=== PATIENT | female | born 1965 | race Caucasian/White ===

== ENCOUNTER 2017-08-21 06:22 | Observation (INO) | payer OTHER ==
[~2017-08-21] VITALS: Ht 157.5 cm; Wt 56.4 kg
[~2017-08-21 06:22] MED LIST: MORP1TAB26 PO; OXYC30TA PO; SACC1CAP3 PO; ZOLO100T PO
[2017-08-21] MEDS ORDERED: BUPIVACAINE/EPINEPHRINE 0.25% 50 ML VIAL ONE (06:26)
[2017-08-21] MEDS ORDERED: BETAMETHASONE SOD PHOS/ACETATE SUSP 30 MG/5 ML VIAL ONE (06:27)
[2017-08-21] MEDS ORDERED: GENTAMICIN SULFATE 80 MG/2 ML VIAL ONE (06:27)
[2017-08-21] MEDS ORDERED: GELATIN 12 MM/7 MM FOAM ONE (06:28)
[2017-08-21] MEDS ORDERED: LACTATED RINGER'S 1000 ML IV PRN (07:15)
[2017-08-21] MEDS ORDERED: CHLORHEXIDINE GLUCONATE 2 % 1 PACK (2 CLOTHS) TOPICAL PRN (07:15)
[2017-08-21] MEDS ORDERED: POVIDONE IODINE 5% (ANTISEPSIS KIT) 4 APPLICATIONS EACH NARE PRN (07:15)
[2017-08-21] MEDS ORDERED: VANCOMYCIN 1000 MG/NS 250 ML (for <70 kg) IV SCH ×2 (07:15)
[2017-08-21] MEDS ORDERED: SODIUM CHLORID 0.9% 500 ML IV PRN (07:15)
[2017-08-21] MEDS ORDERED: METOPROLOL TARTRATE 25 MG TAB PO PRN (07:15)
[2017-08-21] MEDS ORDERED: CHLORHEXIDINE GLUCONATE 4% SOLN 120 ML BTL TOPICAL SCH (07:15)
[2017-08-21] MEDS ORDERED: SUFentanil INJ 250 MCG/5 ML AMP ONE (07:27)
[2017-08-21] MEDS ORDERED: PROPOFOL 500 MG/50 ML INJ 200 ML ONE (07:27)
[2017-08-21] MEDS ORDERED: ACETAMINOPHEN 1000 MG/100 ML 0 ML IV ONE (07:28)
[2017-08-21] MEDS ORDERED: ceFAZolin 2 GM PREMIX 50 ML ONE (08:07)
[2017-08-21] MEDS ORDERED: ARTIFICIAL TEARS OPTH OINT 3.5 APPLIC/3.5 GM TUBO ONE (08:08)
--- NOTE | 2017-08-21 10:41 | PD.OP ---
cc: Rishabh Nichols MD; Nicolas Nichols MD Operative Report Date of Surgery: Aug 21, 2017 Preoperative Diagnosis: Herniated nucleus pulposus C5 6 central. Osteophyte disc complex C5 6 and C6 7. Bilateral cervical radiculopathy Postoperative Diagnosis: Same Procedure: Anterior cervical decompression with bilateral foraminotomy, C5 6. Anterior cervical decompression with bilateral foraminotomies, C6 7. Left anterior iliac crest bone graft Anesthesia: Gen. Surgeon: Nicolas Nichols Powertrain Design Engineer(s): LASHAY Lira Operation and Findings: EBL: 50 cc INDICATIONS: Patient is a 52-year-old female with significant neck and arm pain. Investigative studies shows evidence of osteophyte disc complexes C5 6 and C6 7 with evidence of a central disc herniation at C5 6. The patient has right greater than left arm pain. She presents for surgical treatment. NOTE: Ada Lira PA-C was present for the entire surgical procedure as my assistant branch operations manager. In my medical opinion her skill and care was necessary for proper management of this patient PROCEDURE: The patient was brought to the operating room and anesthetized in the supine position. This patient was positioned supine on the radiolucent table. All pressure points were protected in the anterior cervical spine and iliac crest was scrubbed with alcohol followed by Hibiclens followed by ChloraPrep. A timeout was done and antibiotics were given within 1 hour time window. Lateral radiographic images were used identifying the proper level. A right anterior incision was made in line with skin creases. The platysma was opened in line with the incision. Deep dissection continued in the interval between the carotid sheath and the esophagus. The longus-coli muscles were lifted on both sides and retractors were positioned allowing good exposure. Lateral radiographic images were used to identify the proper level. [place] style interosseous pins were placed at C5 and C6 allowing exposure to that level. The microscope was rolled into the field. A total discectomy was accomplished and posterior osteophytes were removed. The posterior longitudinal ligament and annulus was taken down. Bilateral foraminotomies were accomplished. The endplates were squared up anticipating later bone grafting. A blunt probe could be placed out each foramen without evidence of nerve root compromise. The C5 pin was placed down to C7. An anterior exposure was accomplished. We performed a total discectomy with excision of the posterior annulus and posterior longitudinal ligament. Bilateral foraminotomies were accomplished. Osteophytes were removed. The endplates were squared up anticipating later bone grafting. A blunt probe could be placed out each foramen without evidence of nerve root compromise. The left iliac crest was approached. A small stab incision was made allowing percutaneous access to the anterior iliac crest. Multiple cores of cancellous bone were harvested and taken to the back table to be used for later bone grafting. The wound was irrigated anesthetized and closed with 4-0 Vicryl followed by Dermabond. The case was turned over to Dr. Rishabh Nichols for fusion and instrumentation per his dictation. FINDINGS: There was evidence of a moderately large disc herniation centrally at C5 6. There was bilateral foraminal stenosis to that level worse on the right than on the left. At C6 7 1 similar finding was found with mostly a mixed osteophyte disc complex. There was bilateral foraminal stenosis left greater than right at that level. The final decompression was felt be very satisfactory NOTE: This surgery was performed in 2 parts. The first part was the neurosurgical decompression performed under the variable power stereo microscope by the undersigned in addition to the bone graft. The second portion of the surgery will be performed by the orthopedic spine component by co -surgeon, Dr. Rishabh Nichols for the anterior fusion with interbody cage and anterior plate. The skill of 2 surgeons was necessary to perform distinct separate procedural services as dictated above and dictated in the following operative note by Dr. Rishabh Nichols. Nicolas Nichols MD Aug 21, 2017 10:41
[2017-08-21] MEDS ORDERED: NEOSTIGMINE 5 MG/5 ML SYRINGE IV PUSH ONE (12:00)
[2017-08-21] MEDS ORDERED: DEXAMETHASONE SOD PHOS 4 MG/ML VIAL IV ONE (12:00)
[2017-08-21] MEDS ORDERED: ONDANSETRON HCL 4 MG/2 ML VIAL IV ONE (12:00)
[2017-08-21] MEDS ORDERED: LIDOCAINE HCL 1% PF 5 ML SYRINGE OTHER ONE (12:00)
[2017-08-21] MEDS ORDERED: GLYCOPYRROLATE 1 MG/5 ML SYRINGE IV PUSH ONE (12:00)
[2017-08-21] MEDS ORDERED: PROPOFOL 200 MG/20 ML AMP IV ONE (12:00)
[2017-08-21] MEDS ORDERED: PROMETHAZINE INJ 25 MG/ML VIAL IM PRN (12:00)
[2017-08-21] MEDS ORDERED: ROCURONIUM INJ 50 MG/5 ML SYRINGE IV PUSH ONE (12:00)
--- NOTE | 2017-08-21 12:07 | HHI.PR ---
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 [place] Supervisor(s): Alea Martin PA-C Procedure: C5-7 ACDF Complications: none Estimated blood loss: 200 cc Anesthesia: General Drains: None Patient to: SDS Patient Condition: Good Implant/Devices: SEE IMPLANT LOG (if applicable) Date/Time of Procedure: SEE SURGICAL CARE RECORD Rishabh Nichols MD Aug 21, 2017 12:07
[2017-08-21] MEDS ORDERED: MORPHINE SULFATE 4 MG/ML INJ ONE (12:13)
[2017-08-21] MEDS ORDERED: MIDAZOLAM HCL 2 MG/2 ML VIAL ONE (12:14)
[2017-08-21] MEDS ORDERED: *morphine SULFATE 8 MG/ML PERIprocedure ONLY ONE ×3 (12:15→12:47)
[2017-08-21] MEDS ORDERED: DO NOT ADM ANY ANTICOAGULANT DRUGS PRN (12:45)
--- NOTE | 2017-08-21 12:52 | MP ---
cc: Rishabh Nichols MD DATE OF OPERATION: 08/21/2017 [place] FA[place] # [facility] FAX # , [place], [place] PREOPERATIVE DIAGNOSES: 1. C5-6 moderately severe osteophyte disc complex, moderately severe spinal stenosis with spinal cord compression, bilateral foraminal stenosis; C6-7 bilateral moderately severe foraminal stenosis, central/left-sided osteophyte disc complex, mild to moderate spinal stenosis; cervical spine degenerative disc disease, osteoarthritis. 2. Bilateral cervical radiculitis with upper extremity weakness. POSTOPERATIVE DIAGNOSES: 1. C5-6 moderately severe osteophyte disc complex, moderately severe spinal stenosis with spinal cord compression, bilateral foraminal stenosis; C6-7 bilateral moderately severe foraminal stenosis, central/left-sided osteophyte disc complex, mild to moderate spinal stenosis; cervical spine degenerative disc disease, osteoarthritis. 2. Bilateral cervical radiculitis with upper extremity weakness. PROCEDURE: C5-6, C6-7 anterior interbody fusion; C5-6, C6-7 Spinet ACC anterior cervical cage; C5-6, C6-7 anterior interbody fusion; C5-6, C6-7 Spinet ACC anterior cervical cage; C5-C7 Spinet Rauscher anterior spinal instrumentation. SURGEON: MD Maryam EXCAVATING SUPERVISOR: Alea Martin PA-C ANESTHESIA: General. ESTIMATED BLOOD LOSS: 200 cc for the entire case. DRAIN: None. COMPLICATIONS: None. PLAN OF ACTIVITY: Per orders. PROCEDURE: Dr. Nicolas Nichols and myself were co-surgeons. Dr. Nicolas Nichols performed the neurosurgical decompression at C5-6 and C6-7 using the operative microscope and left anterior iliac crest bone grafting. I was not present for his portion of the procedure. As the co-surgeon I performed the orthopedic fusion and spinal instrumentation with stabilization at C5-C7. My elder assistant, Alea Martin PA-C was present for my portion of the entire surgical case. She was medically necessary for the entire case because of the complexity of the case and to facilitate the performance of the procedure. The CMT was at the back table and not of the skill set in this case to manipulate the instruments, e.g. the multiple different soft tissue retractors, trial implants and permanent implants. The patient was brought into the operating room, had satisfactory general endotracheal anesthesia by the Department of Anesthesia. Dr. Nicolas Nichols performed right anterior cervical spine exposure to the cervical spine. Using the operating microscope, he performed C5-6 and C6-7 anterior cervical discectomy, anterior decompression and foraminotomies, also left anterior iliac crest bone grafting. I was not present for his portion of the procedure. The endplate at C6-7 was prepared for fusion. The hyaline cartilage and endplate were removed with angled curets and burs. A 7, 10 x 12 ACC cage was placed in the interspace. Anterior iliac bone grafting was used under fluoroscopic guidance for interbody fusion. The endplates at C5-6 were prepared for fusion. The hyaline cartilage and endplate were removed with angled curets and burs. A 5, 10 x 12 ACC cage was placed in the interspace with fluoroscopic guidance. Anterior iliac crest bone grafting was used for interbody fusion. Anterior osteophytes were removed with multiple different types of rongeurs, curets and burs. A 40-mm length Spinet Rauscher plate was used for anterior spinal instrumentation. Normal cervical lordosis was contoured into the plate. Two pins were used to fixate the plate to the vertebral body. This was done under fluoroscopic guidance which confirmed satisfactory position of the anterior spinal instrumentation. Under fluoroscopic guidance two screws were used in the vertebral body of C5, C6 and C7. Each of the screws were drilled. The screws were 14 mm in length, 4.0 mm in outer diameter, fixed angle screws. Each screw was drilled and inserted into the vertebral bodies and each screw was appropriately locked to the anterior spinal fixation plate. Each of the transfixion pins were removed. Under fluoroscopic guidance the patient was found to have satisfactory position of anterior spinal fixation at C5-C7, satisfactory position of bone graft at C5-6 and C6-7, satisfactory position of the Spinet ACC cages at C5-6 and C6-7. The wound was irrigated with copious amounts of sterile saline and antibiotic solution. The wound itself was dry. Surgiflo was used during the case in order to provide adequate hemostasis and satisfactory postoperative hemostasis. The wound was closed in multiple layers using 3-0 Vicryl. The skin was reapproximated with running subcuticular 4-0 Vicryl. Dermabond was placed over the skin incision. Sterile dressings were applied, [place] cervical orthosis applied. The patient tolerated the procedure well and arrived in the recovery room in stable and satisfactory condition. MD MISSY Booker/PETER , 11:59 AM , 12:51 PM
[2017-08-21] MEDS ORDERED: HYDROmorphone HCL PF 2 MG/ML VIAL ONE ×4 (12:58→14:33)
[2017-08-21] MEDS: LACTATED RINGER'S 1000 ML INJ 1,000 ML IV SCH (14:00)
[2017-08-21] MEDS ORDERED: ALUMINUM/MAGNESIUM/SIMETH 30 ML CUP PO PRN (14:15)
[2017-08-21] MEDS ORDERED: ONDANSETRON HCL 4 MG/2 ML VIAL IV PUSH PRN (14:15)
[2017-08-21] MEDS ORDERED: Post-op Orders (for Pharmacy) XX ONE (15:00)
--- NOTE | 2017-08-21 15:16 | RADRPT ---
EXAM DATE/TIME: 08/21/2017 11:28 [facility] COMPARISON: No previous studies available for comparison. INDICATIONS : C5-6, C6-7 Anterior cervical disc fusion. MEDICAL HISTORY : Osteoarthritis. Hepatitis C. Gastroesophageal reflux disease. SURGICAL HISTORY : Appendectomy. Cholecystectomy. Hysterectomy. ENCOUNTER: Initial ACUITY: 1 day PAIN SCORE: Non-responsive. LOCATION: Cervical spine. FINDINGS: Status post anterior cervical fusion at C5-6 and C6-7. There is good position and alignment on this p ostoperative study. The hardware is grossly intact. CONCLUSION: Good position and alignment. Sagar Canela MD on August 21, 2017 at 15:14 Board Certified Radiologist. This report was verified electronically.
[2017-08-21 17:55] VITALS: BP 124/80; PULSE 54; RESP 18; TEMP 98.2; O2SAT 95
[2017-08-21 20:00] VITALS: BP 140/87; PULSE 71; RESP 16; TEMP 98.6; O2SAT 95
[2017-08-21] MEDS: MORPHINE SULFATE 60 MG CONTROLLED RELEASE TAB PO SCH (20:30)
[2017-08-21] MEDS ORDERED: ZOLPIDEM TARTRATE 5 MG TAB PO PRN (21:00)
[2017-08-22] VITALS: BP 156/94; PULSE 77; RESP 18; TEMP 98.5; O2SAT 95
[2017-08-22] MEDS: LACTATED RINGER'S 1000 ML INJ 1,000 ML IV SCH (02:30)
[2017-08-22 04:00] VITALS: BP 117/71; PULSE 60; RESP 16; TEMP 99; O2SAT 99
--- NOTE | 2017-08-22 06:49 | PD.ORT.PN ---
Subjective Subjective Remarks complaining of post operative neck pain pt has hx of chronic pain syndrome, on large amount of narcotics that is being managed by pain management Objective Vitals Vital Signs Date Time Temp Pulse Resp B/P (MAP) Pulse Ox O2 Delivery O2 Flow Rate FiO2 08/22/17 00:00 98.5 77 18 156/94 (114) 95 08/21/17 21:28 18 08/21/17 21:28 18 08/21/17 20:00 98.6 71 16 140/87 (104) 95 08/21/17 17:55 98.2 54 18 124/80 (95) 95 08/21/17 16:00 74 16 130/79 (96) 96 Room Air 08/21/17 15:00 64 15 123/70 (87) 97 Room Air 08/21/17 14:00 98.4 73 16 116/58 (77) 96 Room Air 08/21/17 13:45 62 15 121/59 (79) 97 Room Air 08/21/17 13:30 58 14 122/71 (88) 96 Room Air 08/21/17 13:15 66 14 115/60 (78) 97 Room Air 08/21/17 13:00 69 15 125/74 (91) 95 Room Air 08/21/17 12:45 65 13 123/75 (91) 97 Room Air 08/21/17 12:30 66 14 130/78 (95) 98 Room Air 08/21/17 12:15 71 14 126/62 (83) 100 Nasal Cannula 2 08/21/17 12:00 98.6 51 10 127/64 (85) 100 Nasal Cannula 2 I/O 08/21/17 08/21/17 08/21/17 08/22/17 08/22/17 08/22/17 07:00 15:00 23:00 07:00 15:00 23:00 Intake Total 1500 ml 440 ml Output Total 1200 ml 825 ml Balance 300 ml -385 ml Intake Oral 120 ml IV Total 1500 ml 320 ml Output Urine Total 825 ml Estimated Blood Loss 200 ml Other 1000 ml # Voids 5 Objective Remarks seen by Dr. Rishabh Nichols Roberts collar in place cervical dressing dry and intact Motor +5/5 to UE Assessment & Plan Assessment and Plan POD # 1 s/p C 5-7 ACDF Roberts collar x 4 weeks discharge home today orthopedically stable pain meds managed by pain management physician Alea Martin Aug 22, 2017 06:49
[2017-08-22 08:00] VITALS: BP 127/76; PULSE 68; RESP 16; TEMP 97.1; O2SAT 97
[2017-08-22] MEDS: MORPHINE SULFATE 60 MG CONTROLLED RELEASE TAB PO SCH (08:54)
[2017-08-22] MEDS ORDERED: SERTRALINE HCL 100 MG TAB PO SCH (09:00)
[2017-08-22] MEDS ORDERED: MULTIVITAMINS/MINERALS THERAPEUTIC TAB PO SCH (09:00)
== END 2017-08-22 11:32 | disposition home or self-care (01) ==
LOC: HSDC 06:22 → HSDI 11:53 → N06A 17:49
PROVIDERS: ADMIT Orthopaedic Surgery Orthopaedic Surgery of the Spine; ATTEND Orthopaedic Surgery Orthopaedic Surgery of the Spine
DX: M50.123 Cervical disc disorder at C6-C7 level with radiculopathy (principal); M48.02 Spinal stenosis, cervical region; M47.22 Other spondylosis with radiculopathy, cervical region; M25.78 Osteophyte, vertebrae; G95.20 Unspecified cord compression; M19.90 Unspecified osteoarthritis, unspecified site; G58.9 Mononeuropathy, unspecified; G89.4 Chronic pain syndrome; Z90.710 Acquired absence of both cervix and uterus
CPT/HCPCS: 00600; 20936; 22551; 22552; 22845; 22853; 72040; 76000; 94150; 96365; C1713; G0378; J0690; J1100; J1170; J1580; J2250; J2270; J2405; J2710; J3370; J7050; J7120; J0131; J0702